=== PATIENT | male | born 1960 | race Caucasian/White ===

== ENCOUNTER 2024-10-14 09:39 | Inpatient (IN) | payer MEDICARE, MEDICAID ==
[~2024-10-14] VITALS: Ht 182.9 cm; Wt 75.0 kg
[2024-10-14] MEDS: NICOTINE 21MG/24HR 1 EA TRANSDERMAL TD SCH (09:00)
[~2024-10-14 09:39] MED LIST: SOMA350T; VICO5TAB
[2024-10-14] MEDS ORDERED: oxyCODONE 5MG TAB PO PRN (10:40)
[2024-10-14 13:00] VITALS: BP 150/66; TEMP 98; O2SAT 98
[2024-10-14 14:56] LABS: HEMATOCRIT 34.4 % (42.0-52.0); HEMOGLOBIN 10.8 g/dl (13.5-17.5); MEAN CORPUSCULAR HEMOGLOBIN 26.3 pg (27.0-33.0); MEAN CORPUSCULAR HGB CONC 31.4 g/dl (32.0-36.5); MEAN CORPUSCULAR VOLUME 83.7 fl (80.0-96.0); PLATELET COUNT, AUTOMATED 310 10^3/uL (150-450); RED BLOOD COUNT 4.11 10^6/uL (4.30-6.10); WHITE BLOOD COUNT 11.1 10^3/uL (4.0-10.0)
[2024-10-14 15:18] LABS: ALBUMIN 3.3 G/DL (3.2-5.2); ALKALINE PHOSPHATASE 112 U/L (40-129); ALT/SGPT 22 U/L (7.0-40); AST/SGOT 21 U/L (<34); BLOOD UREA NITROGEN 27 MG/DL (9-23); CALCIUM LEVEL 8.8 MG/DL (8.3-10.6); CARBON DIOXIDE LEVEL 24 MMOL/L (20-31); CHLORIDE LEVEL 103 MMOL/L (98-107); CREATININE FOR GFR 0.78 MG/DL (0.70-1.30); GLOMERULAR FILTRATION RATE > 60.0 (>49); GLUCOSE, FASTING 139 MG/DL (74-106); MAGNESIUM LEVEL 1.9 MG/DL (1.8-2.4); POTASSIUM SERUM 4.9 MMOL/L (3.5-5.1); SODIUM LEVEL 136 MMOL/L (136-145); TOTAL PROTEIN 6.4 G/DL (5.7-8.2)
[2024-10-14] MEDS ORDERED: PROPRANOLOL 10 MG TAB PO SCH (16:00)
[2024-10-14] MEDS: oxyCODONE 5MG TAB PO PRN (17:11)
[2024-10-14] MEDS ORDERED: LISI40TA4 PO (17:17)
[2024-10-14] MEDS ORDERED: ELIQ5TAB PO (17:17)
[2024-10-14] MEDS ORDERED: AMLO1TAB24 PO (17:17)
[2024-10-14] MEDS ORDERED: PROP10TA56 PO (17:17)
[2024-10-14] MEDS ORDERED: DULO1CAP6 PO (17:17)
[2024-10-14] MEDS ORDERED: FINA5TAB2 PO (17:17)
[2024-10-14] MEDS ORDERED: METH-1387 PO (17:17)
[2024-10-14] MEDS ORDERED: PANT40TA29 PO (17:17)
[2024-10-14] MEDS ORDERED: SENN-186 PO (17:20)
[2024-10-14] MEDS ORDERED: MIRA3350 PO (17:20)
[2024-10-14] MEDS ORDERED: D200CAP2 PO (17:20)
[2024-10-14] MEDS ORDERED: ASPI81TA26 PO (17:20)
[2024-10-14] MEDS ORDERED: APAP325T4 PO (17:20)
[2024-10-14] MEDS ORDERED: HOME MED LIST COMPLETE! XX SCH (17:25)
[2024-10-14 20:14] VITALS: BP_SYST 100; BP_SYST 111; BP_DIAS 61; BP_DIAS 64; TEMP 98.6; O2SAT 99
[2024-10-14] MEDS: PROPRANOLOL 10 MG TAB PO SCH (21:08)
[2024-10-14] MEDS: POTASSIUM CHLORIDE 10MEQ SR TABLET PO SCH (21:09)
[2024-10-14] MEDS: SENNA 8.6 MG TAB (SENOKOT) PO SCH (21:09)
[2024-10-14] MEDS: ACETAMINOPHEN 500 MG TAB PO SCH (21:10)
[2024-10-15 04:40] VITALS: BP 109/56; TEMP 97.6; O2SAT 97
[2024-10-15 09:31] VITALS: BP 133/63
[2024-10-15] MEDS: MIRALAX *UNIT DOSE* 17GM PACKET PO SCH (09:32)
[2024-10-15] MEDS: PANTOPRAZOLE 40MG TAB (PROTONIX) PO SCH (09:32)
[2024-10-15] MEDS: lisinopriL 40MG TAB PO SCH (09:33)
[2024-10-15] MEDS: VITAMIN D 1,000 INTERNATIONAL UNITS TABLET PO SCH (09:33)
[2024-10-15] MEDS: amLODIPine 5 MG TAB PO SCH (09:33)
[2024-10-15] MEDS: DULoxetine 30MG CAPSULE (CYMBALTA) PO SCH (09:33)
[2024-10-15] MEDS: FINASTERIDE 5MG TAB PO SCH (09:33)
[2024-10-15] MEDS: FLUBLOK(EGGFREE) TRIVAL(24-25) VACCINE PF 0.5ML SYRINGE 18YRS & OLDER IM.IMMUN ONE (09:35)
[2024-10-15] MEDS: ONDANSETRON 4MG TAB PO PRN (10:50)
[2024-10-15] MEDS: APIXABAN 5 MG TAB (ELIQUIS) PO SCH (11:06)
[2024-10-15 12:00] VITALS: BP 123/59; TEMP 97.4; O2SAT 98
[2024-10-15 15:29] VITALS: BP 124/60
[2024-10-15] MEDS: methocarbamoL 500 MG TAB PO PRN (15:36)
[2024-10-15 19:28] VITALS: BP 101/57; TEMP 97.7; O2SAT 99
[2024-10-16 03:41] VITALS: BP 101/56; TEMP 97.4; O2SAT 97
[2024-10-16 12:00] VITALS: BP 115/57; TEMP 97.1; O2SAT 99
[2024-10-16 15:10] VITALS: BP 118/55
[2024-10-16 20:00] VITALS: BP 135/98; TEMP 97.5; O2SAT 98
[2024-10-17 04:47] VITALS: BP 112/55; TEMP 98.2; O2SAT 98
[2024-10-17 12:00] VITALS: BP 118/64; TEMP 98; O2SAT 98
[2024-10-17 20:00] VITALS: BP 106/54; TEMP 98.4; O2SAT 97
[2024-10-17] MEDS: FAMOTIDINE 20 MG TAB PO SCH (20:46)
[2024-10-18 04:00] VITALS: BP 107/51; TEMP 98.7; O2SAT 99
[2024-10-18 12:00] VITALS: BP 110/64; TEMP 96.9; O2SAT 98
[2024-10-18 20:00] VITALS: BP 100/60; TEMP 97.3; O2SAT 100
[2024-10-19 04:00] VITALS: BP 100/60; TEMP 97; O2SAT 96
[2024-10-19] MEDS: traMADol 50 MG TAB PO SCH ×2 (06:47→17:10)
[2024-10-19 12:00] VITALS: BP 103/72; TEMP 97.5; O2SAT 98
[2024-10-19] MEDS: CYCLOBENZAPRINE 5MG TABLET PO SCH (12:06)
[2024-10-19] MEDS: IBUPROFEN 400MG TAB PO ONE (12:06)
[2024-10-19] MEDS: IBUPROFEN 400MG TAB PO SCH (17:10)
[2024-10-19 20:38] VITALS: BP 102/50; TEMP 96.8; O2SAT 98
[2024-10-19] MEDS: PANTOPRAZOLE 40MG TAB (PROTONIX) PO SCH (21:51)
[2024-10-20 04:25] VITALS: BP 132/68; TEMP 96.8; O2SAT 98
[2024-10-20 06:36] LABS: BASO % 0.2 % (0.0-1.0); EOS # 0.2 10^3/uL (0.0-0.5); HEMATOCRIT 32.7 % (42.0-52.0); HEMOGLOBIN 10.4 g/dl (13.5-17.5); LYMPH # 0.7 10^3/uL (1.5-5.0); LYMPH % 13.8 % (24.0-44.0); MEAN CORPUSCULAR HEMOGLOBIN 26.8 pg (27.0-33.0); MEAN CORPUSCULAR HGB CONC 31.8 g/dl (32.0-36.5); MEAN CORPUSCULAR VOLUME 84.3 fl (80.0-96.0); MONO # 0.6 10^3/uL (0.0-0.8); MONO % 11.1 % (2.0-8.0); NEUTROPHILS # 3.6 10^3/uL (1.5-8.5); NEUTROPHILS % 70.1 % (36.0-66.0); PLATELET COUNT, AUTOMATED 296 10^3/uL (150-450); RED BLOOD COUNT 3.88 10^6/uL (4.30-6.10); WHITE BLOOD COUNT 5.1 10^3/uL (4.0-10.0)
[2024-10-20 07:11] LABS: BLOOD UREA NITROGEN 22 MG/DL (9-23); CALCIUM LEVEL 8.2 MG/DL (8.3-10.6); CARBON DIOXIDE LEVEL 24 MMOL/L (20-31); CHLORIDE LEVEL 102 MMOL/L (98-107); CREATININE FOR GFR 0.81 MG/DL (0.70-1.30); GLOMERULAR FILTRATION RATE > 60.0 (>49); GLUCOSE, FASTING 109 MG/DL (74-106); POTASSIUM SERUM 4.9 MMOL/L (3.5-5.1); SODIUM LEVEL 132 MMOL/L (136-145)
[2024-10-20 12:15] VITALS: BP 109/58; TEMP 96.8; O2SAT 99
[2024-10-20] MEDS ORDERED: POTA-136 PO ×2 (14:52→16:19)
[2024-10-20] MEDS ORDERED: ONDA-83 PO (14:52)
[2024-10-20] MEDS ORDERED: CYCL5TAB4 PO (14:52)
[2024-10-20] MEDS ORDERED: METH-1387 PO (14:52)
[2024-10-20] MEDS ORDERED: PROP10TA56 PO (14:52)
[2024-10-20] MEDS ORDERED: OXYC-517 PO (14:52)
[2024-10-20] MEDS ORDERED: PANT40TA29 PO (14:52)
[2024-10-20] MEDS ORDERED: IBUP-1114 PO (14:52)
[2024-10-20] MEDS ORDERED: ASPI81TA26 PO (14:52)
[2024-10-20 16:04] LABS: BLOOD UREA NITROGEN 23 MG/DL (9-23); CALCIUM LEVEL 7.9 MG/DL (8.3-10.6); CARBON DIOXIDE LEVEL 25 MMOL/L (20-31); CHLORIDE LEVEL 100 MMOL/L (98-107); CREATININE FOR GFR 0.99 MG/DL (0.70-1.30); GLOMERULAR FILTRATION RATE > 60.0 (>49); GLUCOSE, FASTING 89 MG/DL (74-106); POTASSIUM SERUM 5.4 MMOL/L (3.5-5.1); SODIUM LEVEL 132 MMOL/L (136-145)
[2024-10-20 19:39] VITALS: BP 104/57; TEMP 97.2; O2SAT 98
[2024-10-21] MEDS: HYDROMORPHONE HCL 0.5 MG/ 0.5 ML SYRINGE IV ONE (01:16)
[2024-10-21] MEDS ORDERED: NS 500 ML IV ONE (03:00)
[2024-10-21] MEDS ORDERED: IPRATROPIUM 0.5MG/ALBUTEROL 2.5MG INH SOL UD 3ML (DUONEB) NEB ONE (03:05)
[2024-10-21 04:41] VITALS: BP 102/61; TEMP 97.3; O2SAT 96
[2024-10-21] MEDS: KETOROLAC 30 MG/ML 1ML VIAL IV PRN (08:38)
[2024-10-21 11:52] VITALS: BP 102/58; TEMP 99; O2SAT 100
[2024-10-21] MEDS: KETOROLAC 30 MG/ML 1ML VIAL IV SCH (16:43)
[2024-10-21] MEDS: POTASSIUM CHLORIDE 10MEQ SR TABLET PO SCH (18:27)
[2024-10-21 20:00] VITALS: BP 131/59; TEMP 98.2; O2SAT 98
[2024-10-21] MEDS: SENOKOT S TAB PO SCH (20:31)
[2024-10-22 05:16] VITALS: BP 109/54; TEMP 97.8; O2SAT 95
[2024-10-22 12:00] VITALS: BP 110/56; TEMP 97; O2SAT 97
[2024-10-22 20:00] VITALS: BP 110/53; TEMP 96.6; O2SAT 100
[2024-10-23 04:00] VITALS: BP 115/55; TEMP 96.9; O2SAT 100
[2024-10-23 12:00] VITALS: BP 106/57; TEMP 97; O2SAT 98
[2024-10-23 20:30] VITALS: BP 106/60; TEMP 97.9; O2SAT 97
[2024-10-24] VITALS (7 sets, daily range): BP systolic 107–162; BP diastolic 55–72; TEMP 96.6–97.6; O2SAT 98–99
[2024-10-24] MEDS: MIRTAZAPINE 15 MG TAB PO SCH (20:42)
== END 2024-10-24 10:22 | disposition short-term general hospital (02) | DRG 560 ==
LOC: M PM&R 13:00
PROVIDERS: ADMIT Physical Medicine & Rehabilitation; ATTEND Physical Medicine & Rehabilitation
DX: S42.302D Unspecified fracture of shaft of humerus, left arm, subsequent encounter for fracture with routine healing (principal); E87.1 Hypo-osmolality and hyponatremia; T84.122A Displacement of internal fixation device of bone of right forearm, initial encounter; S72.102D Unspecified trochanteric fracture of left femur, subsequent encounter for closed fracture with routine healing; I48.0 Paroxysmal atrial fibrillation; G89.18 Other acute postprocedural pain; M06.9 Rheumatoid arthritis, unspecified; Z79.01 Long term (current) use of anticoagulants; F41.9 Anxiety disorder, unspecified; F32.A Depression, unspecified; F17.210 Nicotine dependence, cigarettes, uncomplicated; Z79.52 Long term (current) use of systemic steroids; K21.9 Gastro-esophageal reflux disease without esophagitis; E05.90 Thyrotoxicosis, unspecified without thyrotoxic crisis or storm; M24.651 Ankylosis, right hip; M24.652 Ankylosis, left hip; M85.89 Other specified disorders of bone density and structure, multiple sites; F12.90 Cannabis use, unspecified, uncomplicated; Z91.199 Patient's noncompliance with other medical treatment and regimen due to unspecified reason; Z88.8 Allergy status to other drugs, medicaments and biological substances; Z79.899 Other long term (current) drug therapy; Z79.82 Long term (current) use of aspirin; R26.89 Other abnormalities of gait and mobility; N40.0 Benign prostatic hyperplasia without lower urinary tract symptoms; D64.9 Anemia, unspecified; Y83.1 Surgical operation with implant of artificial internal device as the cause of abnormal reaction of the patient, or of later complication, without mention of misadventure at the time of the procedure; G47.00 Insomnia, unspecified